=== PATIENT | male | born 1960 | race Caucasian/White ===

== ENCOUNTER 2024-07-27 15:01 | Emergency (ER) | payer MEDICAID ==
[~2024-07-27] VITALS: Ht 312.4 cm; Wt 84.0 kg
[2024-07-27 15:04] VITALS: O2SAT 100
[2024-07-27] MEDS ORDERED: CEPH500T MT (17:08)
[2024-07-27] MEDS ORDERED: SULF1TAB48 MT (17:08)
[2024-07-27 17:26] VITALS: BP 120/61; PULSE 94; RESP 18; TEMP 36.7; O2SAT 100
== END 2024-07-27 17:27 | disposition home or self-care (01) ==
LOC: ER 15:01
DX: L02.213 Cutaneous abscess of chest wall (principal); Z88.2 Allergy status to sulfonamides
CPT/HCPCS: 99283